=== PATIENT | female | born 1955 | race African-American/Black ===

== ENCOUNTER 2019-01-04 20:00 | Emergency (ER) | payer MEDICAID ==
[~2019-01-04] VITALS: Ht 167.6 cm; Wt 77.1 kg
[~2019-01-04 20:00] MED LIST: AMLODIPINE BES2.5 MG ORAL; CYCLOBENZAPRINE10 MG ORAL; ENALAPRIL MALEA20 MG ORAL; HYDROCHLOROTH12.5 M2 ORAL
[2019-01-04 20:24] VITALS: BP 152/97
--- NOTE | 2019-01-04 20:25 | NUR ---
ER Nurse Note: Pt came from home c/o lower back pain for a "few months". Pt rates pain 9/10 constant pain but pain is worse since last week. Per pt, no trauma to back, hurts with all movement but is distractable. Skin intact. ERMD at pt side; will continue to monitor.
[2019-01-04] MEDS ORDERED: Methocarbamol 500mg tab ORAL ONE (20:45)
[2019-01-04 20:54] LABS: APPEARANCE,URINE CLEAR; BILIRUBIN, URINE NEGATIVE (NEGATIVE); COLOR,URINE PALE YELLOW; GLUCOSE, URINE (UA) NEGATIVE (NEGATIVE); KETONES,URINE NEGATIVE (NEGATIVE); LEUKOCYTE ESTERASE ,URINE 1+ (NEGATIVE); NITRITE,URINE NEGATIVE (NEGATIVE); PH,URINE 6 (4.5-8.0); PROTEIN,URINE NEGATIVE (NEGATIVE); UROBILINOGEN,URINE NORMAL MG/DL (0.0-1.0)
[2019-01-04] MEDS ORDERED: LIDOCAINE700 M1 TP (21:30)
--- NOTE | 2019-01-04 21:40 | NUR ---
ER Nurse Note: Pt seen, treated, medically cleared for discharge by ERMD. Discharge instructions and prescriptions given with repeat verbalization by pt. Instructed pt to follow up with primary care physcian within one week. Pt a&ox4, VSS, no signs of distress. All orders completed per ERMD orders. Pt left with steady gait, with all of belongings, via own transportation.
[2019-01-04 21:41] VITALS: BP 148/90
--- NOTE | 2019-01-05 10:12 | Diagnostic Imaging Report ---
Indication: Low back pain Technique: 3 views of the lumbar spine Comparison: None Findings: Bony alignment is normal. Vertebral body heights are preserved. There is degenerative disc narrowing at L4-5 and L5-S1. Pedicles are intact. Sacral arches are preserved. Sacroiliac joint spaces are preserved. The extraspinal soft tissues are unremarkable Impression: Degenerative changes as described. No acute bony trauma
--- NOTE | 2019-01-06 13:58 | Emergency Room Report ---
History of Present Illness General Chief Complaint: Back Pain-No Injury Source: Patient Present Illness HPI Patient is a 63-year-old female presented after increased low back pain. Patient reports of increased midline low back pain worse with extension. Patient prefers a seated position. This had been gradual onset over several months. Patient was noted to have no numbness or weakness to her extremities. She typically been having intermittent episodes with back spasms with worsening pain. Patient reports some constant component. She stated this had worsened over the past few days. She denies any recent trauma. She had not been having any fever or weight loss. She denies any bowel bladder dysfunction. Allergies: Coded Allergies: CODEINE (Unverified Allergy, Intermediate, Hives, 01/04/19) Patient History Past Medical History: see triage record Reviewed Nursing Documentation: PMH: Agreed; PSxH: Agreed Nursing Documentation-PMH Hx Cardiac Problems: No - DENGUE FEVER Hx Hypertension: Yes Hx Pacemaker: No Hx Asthma: No Hx COPD: No Hx Diabetes: No Hx Cancer: No Hx Gastrointestinal Problems: No Hx Dialysis: No Hx Neurological Problems: No Hx Cerebrovascular Accident: No Hx Seizures: No Review of Systems All Other Systems: negative except mentioned in HPI Physical Exam Vital Signs Date Time Temp Pulse Resp B/P (MAP) Pulse Ox O2 Delivery O2 Flow Rate FiO2 01/04/19 20:10 98.2 74 18 152/97 95 Room Air General Appearance: well appearing, no apparent distress, alert, GCS 15, non- toxic Head: normocephalic, atraumatic ENT: hearing grossly normal, normal voice Neck: full range of motion, supple Respiratory: no respiratory distress, speaking full sentences Cardiovascular #1: normal inspection Gastrointestinal: normal inspection Musculoskeletal: gait/station normal, decreased range of mation Neurologic: normal inspection, alert, oriented x3, responsive, service department manager III-XII nml as tested, motor strength/tone normal, normal gait Psychiatric: mood/affect normal Skin: normal inspection, no rash Medical Decision Making Diagnostic Impression: Primary Impression: Back pain ER Course Patient presented for back pain. Differential diagnosis included but was not limited to herniated disc, cauda equina syndrome, abdominal aortic aneurysm, perforated ulcer, spinal epidural abscess, spinal stenosis, lumbar fracture, metastatic lesion, pyelonephritis. Because of complexity of patient's case laboratory testing and imaging studies were ordered. Urinalysis showed no evidence of urine infection. Patient was noted to have normal bony alignment without evident fracture on lumbar spine series. The patient is advised to follow up with primary care doctor in 2-3 days and that she may need MRI if symptoms persisted. Patient is advised to return if any worsening condition or if any changes in status that are concerning. This report is dictated with [employer]! digital media director software which may occasionally lead to discrepancies related to use of this software. Labs Test 01/04/19 20:40 Urine Color Pale yellow Urine Appearance Clear Urine pH 6 (4.5-8.0) Urine Specific [place] 1.010 (1.005-1.035) Urine Protein Negative (NEGATIVE) Urine Glucose (UA) Negative (NEGATIVE) Urine Ketones Negative (NEGATIVE) Urine Blood Negative (NEGATIVE) Urine Nitrite Negative (NEGATIVE) Urine Bilirubin Negative (NEGATIVE) Urine Urobilinogen Normal MG/DL (0.0-1.0) Urine Leukocyte Esterase 1+ (NEGATIVE) Urine RBC 0-2 /HPF (0 - 2) Urine WBC 2-4 /HPF (0 - 2) Urine Squamous Epithelial Cells Few /LPF (NONE/OCC) Urine Bacteria Few /HPF (NONE) Urine HCG, Qualitative Negative (NEGATIVE) Last Vital Signs Date Time Temp Pulse Resp B/P (MAP) Pulse Ox O2 Delivery O2 Flow Rate FiO2 01/04/19 21:41 98.2 80 18 148/90 97 Room Air Status: improved Disposition: HOME, SELF-CARE Condition: Stable Scripts Lidocaine (Lidocaine) 1 Each Adh..patch 5 % TP DAILY, #30 PATCH Prov: Antwan Trujillo MD 01/04/19 Referrals: [facility],REFERR[facility] (PCP) Patient Instructions: Low Back Strain With [facility] Antwan Trujillo MD Jan 06, 2019 13:58
== END 2019-01-04 21:40 | disposition home or self-care (01) ==
LOC: EMR 20:50
DX: M54.5 Low back pain (principal); Z88.5 Allergy status to narcotic agent; I10 Essential (primary) hypertension
CPT/HCPCS: 72020; 81003; 81025; 99283

== ENCOUNTER 2019-06-15 10:43 | Emergency (ER) | payer MEDICAID ==
[~2019-06-15] VITALS: Ht 167.6 cm; Wt 79.4 kg
[~2019-06-15 10:43] MED LIST changes: +LIDOCAINE700 M1 TP
[2019-06-15 10:53] VITALS: BP 155/86
--- NOTE | 2019-06-15 10:55 | NUR ---
ED Nurse Note: Patient walked into ED c/o left chest pain non radiating 06/06. patient reports she felt the pain since this morning around 7AM. patient is alert awake x4 ambulatory steady gait, breathing unlabored and even, speaking in full sentences. patient is placed on a threat monitoring analyst.
[2019-06-15] MEDS ORDERED: Aspirin Baby 81mg ORAL ONE (11:00)
[2019-06-15 11:13] LABS: BASOPHILS % (AUTO) 0.7 % (0.0-2.0); EOSINOPHILS % (AUTO) 2.2 % (0.0-3.0); HEMATOCRIT 44.1 % (37.0-47.0); LYMPHOCYTES % (AUTO) 28.7 % (20.0-45.0); MEAN CORPUSCULAR VOLUME 91 FL (80-99); MONOCYTES % (AUTO) 5.5 % (1.0-10.0); PLATELET COUNT 313 K/UL (150-450); RED BLOOD COUNT 4.85 M/UL (4.20-5.40); RED CELL DISTRIBUTION WIDTH 11.5 % (11.6-14.8); WHITE BLOOD COUNT 7.6 K/UL (4.8-10.8)
--- NOTE | 2019-06-15 11:13 | NUR ---
HAND-OFF: Report given to Marquita PARNELL.
--- NOTE | 2019-06-15 11:19 | Emergency Room Report ---
History of Present Illness General Chief Complaint: Chest Pain Source: Patient Present Illness HPI This patient states that this morning about half hour after waking up she developed left-sided chest pain. She states that the chest wall does seem tender to her. She notes that she returned from [place] yesterday after a long flight. She denies leg swelling or leg pain. She denies shortness of breath. She denies recent illness. Denies fever chills. She denies nausea or vomiting. She denies headache or neck pain. She denies weakness. She denies tingling or numbness. She has no other complaints. Allergies: Coded Allergies: CODEINE (Unverified Allergy, Intermediate, Hives, 01/04/19) Patient History Past Medical History: see triage record, HTN Past Surgical History: other - Bladder sling Social History: Reports: alcohol use - moderate; Denies: smoking, drug use Now: No Reviewed Nursing Documentation: PMH: Agreed; PSxH: Agreed Nursing Documentation-PMH Past Medical History: No History, Except For Hx Cardiac Problems: No - DENGUE FEVER Hx Hypertension: Yes Hx Pacemaker: No Hx Asthma: No Hx COPD: No Hx Diabetes: No Hx Cancer: No Hx Gastrointestinal Problems: No Hx Dialysis: No Hx Neurological Problems: No Hx Cerebrovascular Accident: No Hx Seizures: No Review of Systems All Other Systems: negative except mentioned in HPI Physical Exam Vital Signs Date Time Temp Pulse Resp B/P (MAP) Pulse Ox O2 Delivery O2 Flow Rate FiO2 06/15/19 10:47 98.2 83 15 155/86 (109) 99 Room Air Sp02 EP Interpretation: reviewed, normal General Appearance: no apparent distress, alert, GCS 15, non-toxic Head: normocephalic, atraumatic Eyes: bilateral eye normal inspection, bilateral eye PERRL ENT: hearing grossly normal, normal pharynx, no angioedema, normal voice Neck: full range of motion, supple/symm/no masses Respiratory: lungs clear, normal breath sounds, no respiratory distress, no retraction, no accessory muscle use, speaking full sentences, other - L. anterior chest walll TTP Cardiovascular #1: regular rate, rhythm, no edema Gastrointestinal: normal bowel sounds, non tender, soft, non-distended, no guarding, no rebound Rectal: deferred Musculoskeletal: back normal, gait/station normal, normal range of motion, non- tender Neurologic: alert, oriented x3, responsive, motor strength/tone normal, sensory intact, speech normal Psychiatric: judgement/insight normal, memory normal, mood/affect normal, no suicidal/homicidal ideation Skin: no rash, normal color Medical Decision Making Diagnostic Impression: Primary Impression: Chest pain ER Course This patient has nonspecific chest pain. Given the length of symptoms, this workup is very reassuring with negative cardiac enzymes, normal EKG, and normal chest x-ray. The patient is low risk and his symptoms are atypical for acute coronary syndrome. I have very low suspicion for PE, aortic dissection or pneumothorax based on history/physical, laboratory and radiologic workup. The patient did have a long flight, however, I have low suspicion for PE. The patient's leg exam is normal and the patient's symptoms are reproducible with palpation of the chest wall on exam. Further reassuring is a negative d-dimer. The patient was given close return precautions and followup instructions. Laboratory Tests Test 06/15/19 10:55 White Blood Count 7.6 K/UL (4.8-10.8) Red Blood Count 4.85 M/UL (4.20-5.40) Hemoglobin 15.0 G/DL (12.0-16.0) Hematocrit 44.1 % (37.0-47.0) Mean Corpuscular Volume 91 FL (80-99) Mean Corpuscular Hemoglobin 31.0 PG (27.0-31.0) Mean Corpuscular Hemoglobin Concent 34.1 G/DL (32.0-36.0) Red Cell Distribution Width 11.5 % (11.6-14.8) L Platelet Count 313 K/UL (150-450) Mean Platelet Volume 6.2 FL (6.5-10.1) L Neutrophils (%) (Auto) 63.0 % (45.0-75.0) Lymphocytes (%) (Auto) 28.7 % (20.0-45.0) Monocytes (%) (Auto) 5.5 % (1.0-10.0) Eosinophils (%) (Auto) 2.2 % (0.0-3.0) Basophils (%) (Auto) 0.7 % (0.0-2.0) Prothrombin Time 10.2 SEC (9.30-11.50) Prothrombin Time INR 1.0 (0.9-1.1) PTT 33 SEC (23-33) D-Dimer < 0.19 mg/L FEU Sodium Level 143 MMOL/L (136-145) Potassium Level 3.2 MMOL/L (3.5-5.1) L Chloride Level 106 MMOL/L (98-107) Carbon Dioxide Level 26 MMOL/L (21-32) Anion Gap 11 mmol/L (5-15) Blood Urea Nitrogen 14 mg/dL (7-18) Creatinine 0.9 MG/DL (0.55-1.30) Estimate Glomerular Filtration Rate > 60 mL/min (>60) Glucose Level 113 MG/DL (74-106) H Calcium Level 9.1 MG/DL (8.5-10.1) Total Bilirubin 0.9 MG/DL (0.2-1.0) Aspartate Amino Transferase (AST) 18 U/L (15-37) Alanine Aminotransferase (ALT) 17 U/L (12-78) Alkaline Phosphatase 67 U/L (46-116) Total Creatine Kinase 81 U/L (26-308) Creatine Kinase MB 0.8 NG/ML (0.0-3.6) Creatine Kinase MB Relative Index 0.9 Troponin I 0.000 ng/mL (0.000-0.056) Pro-B-Type Natriuretic Peptide 144 pg/mL (0-125) H Total Protein 7.4 G/DL (6.4-8.2) Albumin 3.8 G/DL (3.4-5.0) Globulin 3.6 g/dL Albumin/Globulin Ratio 1.1 (1.0-2.7) Lipase 194 U/L (73-393) Laboratory Tests Test 06/15/19 10:55 White Blood Count 7.6 K/UL (4.8-10.8) Red Blood Count 4.85 M/UL (4.20-5.40) Hemoglobin 15.0 G/DL (12.0-16.0) Hematocrit 44.1 % (37.0-47.0) Mean Corpuscular Volume 91 FL (80-99) Mean Corpuscular Hemoglobin 31.0 PG (27.0-31.0) Mean Corpuscular Hemoglobin Concent 34.1 G/DL (32.0-36.0) Red Cell Distribution Width 11.5 % (11.6-14.8) L Platelet Count 313 K/UL (150-450) Mean Platelet Volume 6.2 FL (6.5-10.1) L Neutrophils (%) (Auto) 63.0 % (45.0-75.0) Lymphocytes (%) (Auto) 28.7 % (20.0-45.0) Monocytes (%) (Auto) 5.5 % (1.0-10.0) Eosinophils (%) (Auto) 2.2 % (0.0-3.0) Basophils (%) (Auto) 0.7 % (0.0-2.0) Prothrombin Time 10.2 SEC (9.30-11.50) Prothrombin Time INR 1.0 (0.9-1.1) PTT 33 SEC (23-33) Sodium Level 143 MMOL/L (136-145) Potassium Level 3.2 MMOL/L (3.5-5.1) L Chloride Level 106 MMOL/L (98-107) Carbon Dioxide Level 26 MMOL/L (21-32) Anion Gap 11 mmol/L (5-15) Blood Urea Nitrogen 14 mg/dL (7-18) Creatinine 0.9 MG/DL (0.55-1.30) Estimate Glomerular Filtration Rate > 60 mL/min (>60) Glucose Level 113 MG/DL (74-106) H Calcium Level 9.1 MG/DL (8.5-10.1) Total Bilirubin 0.9 MG/DL (0.2-1.0) Aspartate Amino Transferase (AST) 18 U/L (15-37) Alanine Aminotransferase (ALT) 17 U/L (12-78) Alkaline Phosphatase 67 U/L (46-116) Total Creatine Kinase 81 U/L (26-308) Creatine Kinase MB 0.8 NG/ML (0.0-3.6) Creatine Kinase MB Relative Index 0.9 Troponin I 0.000 ng/mL (0.000-0.056) Pro-B-Type Natriuretic Peptide 144 pg/mL (0-125) H Total Protein 7.4 G/DL (6.4-8.2) Albumin 3.8 G/DL (3.4-5.0) Globulin 3.6 g/dL Albumin/Globulin Ratio 1.1 (1.0-2.7) Lipase 194 U/L (73-393) EKG Diagnostic Results Rate: normal Rhythm: NSR ST Segments: no acute changes Rhythm Strip Diag. Results EP Interpretation: yes Rate: 70's Rhythm: NSR, no PVC's, no ectopy Chest X-Ray Diagnostic Results Chest X-Ray Diagnostic Results : Chest X-Ray Ordered: Yes # of Views/Limited/Complete: 1 View Indication: Chest Pain EP Interpretation: Yes Interpretation: no consolidation, no effusion, no pneumothorax, no acute cardiopulmonary disease Impression: No acute disease Electronically Signed by: Latasha Rice DO Last Vital Signs Date Time Temp Pulse Resp B/P (MAP) Pulse Ox O2 Delivery O2 Flow Rate FiO2 06/15/19 10:55 71 13 Room Air 06/15/19 10:53 98.2 155/86 97 Status: improved Disposition: HOME, SELF-CARE Condition: Improved Patient Instructions: Nonspecific Chest Pain Latasha Rice DO Jun 15, 2019 11:19
[2019-06-15 11:43] LABS: ANION GAP 11 mmol/L (5-15); BLOOD UREA NITROGEN 14 mg/dL (7-18); CALCIUM 9.1 MG/DL (8.5-10.1); CARBON DIOXIDE 26 MMOL/L (21-32); CHLORIDE 106 MMOL/L (98-107); CREATININE 0.9 MG/DL (0.55-1.30); POTASSIUM 3.2 MMOL/L (3.5-5.1); SODIUM 143 MMOL/L (136-145)
--- NOTE | 2019-06-15 12:08 | Diagnostic Imaging Report ---
Indication: Chest pain Comparison: 09/01/2015 A single view chest radiograph was obtained. Findings: Cardiomediastinal appearance is within normal limits for age. The lungs are clear. Pulmonary vascularity is appropriate. The diaphragmatic contour is smooth and costophrenic angles are sharp. No pleural effusions are identified. The bones are unremarkable. Impression: No acute findings
[2019-06-15 12:12] LABS: ALANINE AMINOTRANSFERASE 17 U/L (12-78); ALBUMIN 3.8 G/DL (3.4-5.0); ALBUMIN/GLOBULIN RATIO 1.1 (1.0-2.7); ALKALINE PHOSPHATASE 67 U/L (46-116); ASPARTATE AMINO TRANSFERASE 18 U/L (15-37); BILIRUBIN,TOTAL 0.9 MG/DL (0.2-1.0); CKMB 0.8 NG/ML (0.0-3.6); CREATINE KINASE 81 U/L (26-308)
[2019-06-15 13:10] VITALS: BP 134/70
[2019-06-15 13:57] VITALS: BP 139/79
[2019-06-15 13:58] VITALS: BP 139/79
--- NOTE | 2019-06-15 14:00 | NUR ---
ER DISCHARGE NOTE: Patient is cleared to be discharged per ERMD, pt is aox4, on room air, with stable vital signs. pt was given dc and prescription instructions, pt was able to verbalize understanding, pt id band and iv site removed without complications. pt is able to ambulate with steady gait. pt took all belongings.
--- NOTE | 2019-06-18 17:42 | Cardiology Report ---
APPROVED REPORT EKG Measurement Heart [id number] Normal sinus rhythm Normal ECG
== END 2019-06-15 14:03 | disposition home or self-care (01) ==
LOC: EMR 11:48
DX: R07.9 Chest pain, unspecified (principal); Z88.6 Allergy status to analgesic agent; I10 Essential (primary) hypertension
CPT/HCPCS: 36415; 71045; 80053; 82550; 82553; 83690; 83880; 84484; 85025; 85379; 85610; 85730; 93005; Z7502; 99284

== ENCOUNTER 2019-12-07 09:32 | Emergency (ER) | payer MEDICAID ==
[~2019-12-07] VITALS: Ht 167.6 cm; Wt 72.6 kg
[~2019-12-07 09:32] MED LIST changes: +OMEPRAZOLE10 M1 ORAL
--- NOTE | 2019-12-07 09:40 | NUR ---
camre to er complaints of flu symptoms , patient also states she just came back after vacationing in [facility] . [facility] has been called and given information about the patient since she just came from vacation
--- NOTE | 2019-12-07 09:45 | NUR ---
dr son spoke to [facility] and cleared the patient to go home and quarentine herself
[2019-12-07] MEDS ORDERED: TAMIFLU75 MG ORAL (10:04)
[2019-12-07] MEDS ORDERED: ZYRTEC10 MG ORAL (10:04)
[2019-12-07 10:11] VITALS: BP 151/101
--- NOTE | 2019-12-07 10:15 | NUR ---
discharged home with instruction and rx follow up with pmd for any problem, instructed to quarentine herself
[2019-12-07 10:17] VITALS: BP 130/80
--- NOTE | 2019-12-08 08:24 | Emergency Room Report ---
History of Present Illness General Chief Complaint: Upper Respiratory Illness Source: Patient Present Illness HPI Patient presents with complaints of runny nose and cough Patient was triaged with concern for possible coronavirus and transported to Isolation room In full isolation gear including cap, Gown, appropriate mask History was obtained Patient reports that she traveled to the [facility] region from October 29 to November 26 At which time she flew back to [facility] 2 days after flew to [place] and returned 3 days ago Patient developed symptoms 2 days ago and presents for further evaluation Denies any chest pain denies any vomiting or diarrhea denies any rash Denies any shortness of breath Allergies: Coded Allergies: CODEINE (Unverified Allergy, Intermediate, Hives, 01/04/19) Uncoded Allergies: flu vaccine (Adverse Reaction, Intermediate, 10/16/19) swelling Patient History Past Medical History: see triage record Now: No Reviewed Nursing Documentation: PMH: Agreed; PSxH: Agreed Nursing Documentation-PMH Hx Cardiac Problems: Yes Hx Hypertension: Yes Hx Pacemaker: No Hx Asthma: No Hx COPD: No Hx Diabetes: No Hx Cancer: No Hx Gastrointestinal Problems: No Hx Dialysis: No Hx Neurological Problems: No Hx Cerebrovascular Accident: No Hx Seizures: No Review of Systems All Other Systems: negative except mentioned in HPI Physical Exam Vital Signs Date Time Temp Pulse Resp B/P (MAP) Pulse Ox O2 Delivery O2 Flow Rate FiO2 12/07/19 09:35 98.6 100 17 151/101 (118) 99 Room Air Sp02 EP Interpretation: reviewed, normal General Appearance: well appearing, no apparent distress Head: normocephalic, atraumatic Eyes: bilateral eye PERRL, bilateral eye EOMI ENT: hearing grossly normal, normal pharynx, TMs + canals normal, uvula midline Neck: full range of motion, supple, no meningismus, no bony tend Respiratory: lungs clear, normal breath sounds, no rhonchi, no respiratory distress, no retraction, no accessory muscle use Cardiovascular #1: normal peripheral pulses, regular rate, rhythm, no edema, no gallop, no JVD, no murmur Gastrointestinal: normal bowel sounds, non tender, soft, no mass, no organomegaly, non-distended, no guarding, no hernia, no pulsatile mass, no rebound Musculoskeletal: normal inspection Neurologic: motor strength/tone normal, strategic advisor III-XII nml as tested, oriented x3 , sensory intact, responsive Psychiatric: mood/affect normal Skin: no rash Lymphatic: normal inspection, no adenopathy Medical Decision Making Diagnostic Impression: Primary Impression: Upper respiratory infection ER Course Coronavirus precautions were initiated Multiple differentials and consideration including but not limited to URI, flu, coronavirus [facility] was contacted Patient's case is discussed They do not recommend testing at this time They recommend self isolation and appropriate hygiene for the next 2 weeks Patient also contributes some of her symptoms to having allergies Otherwise with the lack of any neck pain or photophobia with lack of any diffuse myalgia or documented fever influenza also entertained lower on the differential Patient was diagnosed with URI Is provided information regarding self-isolation and appropriate hygiene and return with any worsening symptoms Last Vital Signs Date Time Temp Pulse Resp B/P (MAP) Pulse Ox O2 Delivery O2 Flow Rate FiO2 12/07/19 10:17 98.0 78 16 130/80 98 Room Air Status: unchanged Disposition: HOME, SELF-CARE Condition: Stable Scripts Cetirizine Hcl* (ZYRTEC*) 10 Mg Tablet 10 MG ORAL DAILY for 7 Days, #30 TAB 0 Refills Prov: Thor Zelaya DO 12/07/19 Oseltamivir Phosphate (Tamiflu) 75 Mg Capsule 75 MG ORAL TWICE A DAY for 5 Days, CAP Prov: Thor Zelaya DO 12/07/19 Referrals: [facility],REFERRING (PCP) [facility] Patient Instructions: Upper Respiratory Infection, Adult Additional Instructions: Your case was discussed with the [facility], at this time going through their latest checklist. They do not recommend testing at this time. Please note that this does not mean you do not have coronavirus. It is Required for you to perform self quarantine and personal health in order to reduce possible spread. Should your symptoms worsen such as increased fever, or recognition of someone on a flight that was positive for this virus please return to your nearest emergency room. Patient is provided with the discharge instructions notified to follow up with primary doctor in the next 2-3 days otherwise return to the er with any worsening symptoms. Please note that this report is being documented using [employer] technology. This can lead to erroneous entry secondary to incorrect interpretation by the dictating instrument. Thor Zelaya DO Dec 08, 2019 08:24
== END 2019-12-07 10:15 | disposition home or self-care (01) ==
LOC: EMR 10:10
DX: J06.9 Acute upper respiratory infection, unspecified (principal); I10 Essential (primary) hypertension; Z88.5 Allergy status to narcotic agent
CPT/HCPCS: 99283; 99284